=== PATIENT | male | born 1965 | race Caucasian/White ===

== ENCOUNTER 2021-04-14 14:39 | Emergency (ER) | payer OTHER, SELFPAY ==
--- NOTE | ~2021-04-14 | CT_ITS ---
EXAMINATION: CT ABDOMEN AND PELVIS WITHOUT CONTRAST CLINICAL INFORMATION: Left flank pain with history of stones COMPARISON: Ultrasound 02/05/2019 TECHNIQUE: Multidetector volumetric imaging was performed from the superior aspect of the liver through the pubic symphysis. Sagittal and coronal reformatted images were obtained on the technologist's workstation. This CT examination was performed using dose optimization techniques as appropriate, variously including the following: *Automated exposure control *Adjustment of mA and/or kV according to patient size (this includes techniques or standardized protocols for targeted exams where dose is matched to indication/reason for exam; i.e. extremities or head) *Use of iterative reconstruction technique DLP: 938 mGy-cm FINDINGS: LUNG BASES: The visualized lung bases are unremarkable. LIVER, GALLBLADDER, AND BILIARY TREE: The liver is normal in size, shape, and attenuation. No focal hepatic lesion or biliary ductal dilatation is present. The gallbladder is unremarkable with no evidence of radiopaque gallstones, gallbladder wall thickening, or obvious pericholecystic inflammatory changes. PANCREAS: Unremarkable. SPLEEN: Unremarkable. ADRENAL GLANDS: Unremarkable. KIDNEYS AND URETERS: Right lower pole 4 mm nonobstructing calculus. There is an 8 mm left lower pole calculus with an adjacent 3 mm calculus. No hydronephrosis or hydroureter bilaterally. BLADDER: Unremarkable. GASTROINTESTINAL TRACT: The small and large bowel are unremarkable. The appendix is unremarkable. ABDOMINAL WALL: Small fat-containing umbilical hernia. LYMPH NODES: Normal. VASCULAR: Unremarkable. PELVIC VISCERA: The prostate and seminal vesicles are unremarkable. OSSEOUS STRUCTURES: Multilevel degenerative changes. There is severe degenerative disc disease with endplate sclerosis, osteophytosis, and vacuum disc phenomenon at L3-L4 through L5-S1. CT/CT abdomen pelvis wo con IMPRESSION: Nonobstructing bilateral renal calculi, 4 mm in the right lower pole and 8mm and 3 mm in the left lower pole. No hydronephrosis or hydroureter.
[2021-04-14 15:21] VITALS: BP 186/90; PULSE 87; RESP 18; TEMP 37; O2SAT 98; BMI 41.3
[2021-04-14 15:53] LABS: Glucose Urine UA NEG (NEG); Leukocyte Esterase Urine NEG (NEG); Nitrite Urine NEG (NEG); PH 5.5 (5.0-8.0); Urine Blood NEG (NEG); Urine Ketones 40 MG/DL (NEG); Urine Protein NEG (NEG-TRACE)
[2021-04-14 15:55] LABS: Appearance Urine CLEAR; Color Urine YELLOW
[2021-04-14 17:55] LABS: MANUAL DIFF FLAG NO
[2021-04-14 17:56] LABS: Basophils Absolute Auto 0.1 X10*3/uL (0.0-0.2); Basophils Percent Auto 0.4 % (0-2); Eosinophils Absolute Auto 0.1 X10*3/uL (0.0-0.4); Eosinophils Percent Auto 0.4 % (0-4); Hematocrit 50.7 % (42-52); Hemoglobin 16.9 g/dl (14.0-18.0); Imm Gran Abs Auto 0.05 X10*3/uL (0.00-0.03); Imm Gran Pct Auto 0.4 % (0.0-0.4); Lymphocytes Absolute Auto 2.9 X10*3/uL (1.2-4.9); Lymphocytes Percent Auto 23.3 % (20-40); Mean Corpuscular HGB Conc 33.3 g/dl (31.0-36.0); Mean Corpuscular Hemoglobin 30.8 pg (27.0-33.0); Mean Corpuscular Volume 92.5 fL (80-98); Mean Platelet Volume 10.2 fL (9.4-12.4); Monocytes Absolute Auto 1.1 X10*3/uL (0.1-1.2); Monocytes Percent Auto 8.9 % (2-11); Neutrophils Absolute Auto 8.3 X10*3/uL (2.0-8.3); Neutrophils Percent Auto 66.6 % (45-73); Platelet Count 197 X10*3/uL (160-400); Red Blood Count 5.48 X10*6/uL (4.60-5.80); Red Cell Distribution Width 13.2 % (11.0-16.0); White Blood Count 12.5 X10*3/uL (4.8-10.8)
[2021-04-14 18:22] LABS: Alanine Aminotransferase 43 U/L (0-40); Albumin Level 4.8 g/dL (3.5-5.0); Alkaline Phosphatase 74 U/L (39-117); Anion Gap 17 (12-20); Aspartate Amino Transferase 25 U/L (5-37); Bilirubin Direct 0.3 mg/dL (0.0-0.5); Bilirubin Total 0.7 mg/dL (0.0-1.0); Blood Urea Nitrogen 12 mg/dL (9-16); Calcium 10.6 mg/dL (8.4-10.2); Carbon Dioxide 25 mmol/L (22-29); Chloride 108 mmol/L (96-108); Creatinine Clr Calc Pharmacy 127.9; Estimated Glomerular Filt Rate > 60; Glucose Random 98 mg/dL (60-115); Lipase 20 U/L (8-78); Potassium 4.8 mmol/L (3.3-5.1); Sodium 145 mmol/L (135-145); Total Protein 7.5 g/dL (6.5-8.0)
--- NOTE | 2021-04-14 20:13 | ED.ABDPAIN ---
HPI - Abdominal Pain General Chief Complaint: Abdominal Pain Stated Complaint: Kidney stone non urine Time Seen by Provider: 04/14/21 20:13 Source: patient Mode of arrival: ambulatory Limitations: no limitations History of Present Illness HPI narrative: Patient history of kidney stone complaining of pain in the left flank left lower abdomen area for last month or so patient on ketogenic diet drinking enough fluids c/o of pain while urinating also no nausea no vomiting no hematuria No fever or chills normal appetite eating drinking fine Related Data Allergies Allergy/AdvReac Type Severity Reaction Status Date / Time No Known Allergies Allergy Unverified 07/17/20 15:08 [No Known Allergies*] Review of Systems Review of Systems Constitutional : No Weight loss, No Fever, No Chills ENT/Mouth : No sore throat, No Rhinorrhea Eyes: No Eye Pain, No Swelling Cardiovascular : No Chest Pain, no palpitations Respiratory : No Cough, No Sputum, no shortness of breath Gastrointestinal : no Nausea, No Vomiting, No Diarrhea, No abdominal Pain, no black stools Genitourinary : No Dysuria, No Urinary Frequency Musculoskeletal : No joint pain, No Myalgias, No Joint Swelling Skin : No Skin Lesions, No rash Neuro : No Weakness, No Numbness, No Dizziness, No Headache Psych : No Anxiety/Panic, No Depression Heme/Lymph: No Bruising, No Lymphadenopathy Endocrine : No Polyuria, No Polydipsia All other systems reviewed and are negative Physical Exam Vital Signs: Vital Signs: Last Vital Signs Temp 98.6 F 04/14/21 15:21 Pulse 88 04/14/21 22:14 Resp 17 04/14/21 22:14 BP 160/101 H 04/14/21 22:14 Pulse Ox 95 04/14/21 22:14 Body Mass Index 41.3 Appearance: Alert. Oriented X3. No acute distress. Eyes: PERRLA, No Nystagmus ENT: Pharynx normal. Oral Mucosa moist Neck: Normal inspection. Neck supple. CVS: Normal heart rate and rhythm. Pulses normal. Respiratory: No respiratory distress. Equal air entry bilateral, no wheezing/rales/rhonchi Abdomen: Soft and nontender. Bowel sounds are present, no mass palpable, left flank tenderness mild Skin: Skin warm and dry. Normal skin color. Normal skin turgor. Extremities: No lower extremity edema. No calf tenderness Neuro: Oriented X 3. No motor deficit. No sensory deficit.No cerebellar signs , cranial nerves II-XII intact MDM - Abdominal Pain MDM Narrative Medical decision making narrative: Patient with left flank pain for a while ketones in the urine , patient on ketogenic diet CT scan showed nonobstructive left renal stone. Patient advised to follow with primary care doctor and neurologist. Patient's blood pressure was on the elevated side on arrival patient's blood pressure was 186/90 at time of discharge was 160/101 patient was on metoprolol and will be seeing his PCP tomorrow advised to talk to about the additional medication for hypertension Lab Data Attestation: I reviewed the patient's lab results. Result diagrams: 04/14/21 17:36 04/14/21 17:36 Labs: Lab Results 04/14/21 04/14/21 04/14/21 Range/Units 15:43 17:36 17:36 WBC 12.5 H (4.8-10.8) X10*3/uL RBC 5.48 (4.60-5.80) X10*6/uL Hgb 16.9 (14.0-18.0) g/dl Hct 50.7 (42-52) % MCV 92.5 (80-98) fL MCH 30.8 (27.0-33.0) pg MCHC 33.3 (31.0-36.0) g/dl RDW 13.2 (11.0-16.0) % Plt Count 197 (160-400) X10*3/uL MPV 10.2 (9.4-12.4) fL Immature Gran % (Auto) 0.4 (0.0-0.4) % Neut % (Auto) 66.6 (45-73) % Lymph % (Auto) 23.3 (20-40) % [place] % (Auto) 8.9 (2-11) % Eos % (Auto) 0.4 (0-4) % Baso % (Auto) 0.4 (0-2) % Lymph # (Auto) 2.9 (1.2-4.9) X10*3/uL [place] # (Auto) 1.1 (0.1-1.2) X10*3/uL Eos # (Auto) 0.1 (0.0-0.4) X10*3/uL Baso # (Auto) 0.1 (0.0-0.2) X10*3/uL Abs Immat Gran (auto) 0.05 H (0.00-0.03) X10*3/uL Absolute Neuts (auto) 8.3 (2.0-8.3) X10*3/uL Absolute Nucleated RBC 0.000 (0.0-0.012) X10*3/uL Nucleated RBC % (auto) 0.0 (0.0-0.2) /100WBC Sodium 145 (135-145) mmol/L Potassium 4.8 (3.3-5.1) mmol/L Chloride 108 (96-108) mmol/L Carbon Dioxide 25 (22-29) mmol/L Anion Gap 17 (12-20) BUN 12 (9-16) mg/dL Creatinine 0.87 (0.5-1.4) mg/dL Estim Creat Clear Calc 127.9 Estimated GFR > 60 Random Glucose 98 (60-115) mg/dL Calcium 10.6 H (8.4-10.2) mg/dL Total Bilirubin 0.7 (0.0-1.0) mg/dL Direct Bilirubin 0.3 (0.0-0.5) mg/dL AST 25 (5-37) U/L ALT 43 H (0-40) U/L Alkaline Phosphatase 74 (39-117) U/L Total Protein 7.5 (6.5-8.0) g/dL Albumin 4.8 (3.5-5.0) g/dL Lipase 20 (8-78) U/L Urine Color YELLOW Urine Appearance CLEAR Urine pH 5.5 (5.0-8.0) Ur Specific [place] 1.020 (1.005-1.025) Urine Protein NEG (NEG-TRACE) MG/DL Urine Glucose (UA) NEG (NEG) MG/DL Urine Ketones 40 (NEG) MG/DL Urine Blood NEG (NEG) Urine Nitrite NEG (NEG) Ur Leukocyte Esterase NEG (NEG) Discharge Plan Discharge Clinical Impression: Kidney stones Patient Disposition: Home, Self-Care Instructions: Kidney Stones (ED), Hypertension (ED) Additional Instructions: Drink plenty of fluids Take blood pressure medicine as prescribed Follow with PCP if not better See your MD tomorrow regarding blood pressure control Interventions: ED Discharge Assessment Last Done: 04/14/21 22:29 Discharge Date/Time: 04/14/21 22:30 PMFSH Past Medical History Medical History Hypertension Social History Social History Advance Directives: No Advance Directives Information Provided: No
[2021-04-14 22:14] VITALS: BP 160/101; PULSE 88; RESP 17; O2SAT 95
== END 2021-04-14 22:30 | disposition home or self-care (01) ==
PROVIDERS: Emergency Medicine; Emergency Provider Internal Medicine; PCP Internal Medicine
DX: N20.0 Calculus of kidney (principal); I10 Essential (primary) hypertension; Z87.442 Personal history of urinary calculi
CPT/HCPCS: 36415; 74176; 80048; 80076; 81003; 83690; 85025; 99284

== ENCOUNTER → 2021-06-04 13:01 | Outpatient (BNVA) | payer OTHER, SELFPAY | PROVIDERS: PCP Internal Medicine; Visit Provider Urology ==

== ENCOUNTER 2021-08-19 06:05 | Day surgery (SDC) | payer OTHER, SELFPAY ==
[2021-08-14 15:00] VITALS: BMI 38.4
--- NOTE | 2021-08-18 09:55 | P.CONAN_ITS ---
Documented by User: Chiara Bird NP 08/18/21 09:57 HPI - Anesthesia Eval Consult details Narrative: 55yo M for Left ESWL Last ESWL 2017 with MAC [facility] Active Problems Active Problems: All Active Problems (Updated 06/04/21 @ 13:43 by Reed Rossi MD) BPH w urinary obs/LUTS (Acute) Nephrolithiasis (Acute) Past Medical History Medical History Hypertension Post-tonsillectomy hemorrhage Surgical History Surgical History History of lithotripsy History of tonsillectomy Social History Social History Patient Tobacco Use Status: Never used Tobacco Use of substances other than those prescribed or required for medical reasons: No Are you DNR?: No Advance Directives: No Advance Directives Information Provided: Yes Recently lost weight without trying: No Nutrition Risks: No Nutritional Risk Meds Allergies Allergy/AdvReac Type Severity Reaction Status Date / Time No Known Allergies Allergy Verified 06/04/21 13:15 [No Known Allergies*] Home Medications Medication Instructions Recorded Confirmed Last Taken Type atorvastatin 10 mg tablet 10 mg PO DAILY 06/04/21 08/19/21 History 0500 cephalexin 500 mg capsule 0 mg PO 06/04/21 Unknown History metoprolol tartrate 50 mg tablet 50 mg PO BID 06/04/21 Unknown History tamsulosin 0.4 mg capsule 0.4 mg PO DAILY 06/04/21 Unknown History Exam Exam Date and Time: August 18, 2021 0955 Height,Weight and Vital Signs: Height 5 ft 9 in Weight 117.934 kg Pertinent Lab Results Pertinent Lab Results: Laboratory Tests 04/14/21 04/14/21 17:36 17:36 WBC 12.5 H Hgb 16.9 Hct 50.7 Plt Count 197 Sodium 145 Potassium 4.8 Chloride 108 Carbon Dioxide 25 BUN 12 Creatinine 0.87 Assessment and Plan Assessment Anesthesia Assessment: Chart Reviewed Documented by User: Kelsey Nguyen MD 08/19/21 07:44 PMFSH Past Medical History Medical History Hypertension Post-tonsillectomy hemorrhage Surgical History Surgical History History of lithotripsy History of tonsillectomy History of Problems with Anesthesia: No Social History Social History Patient Tobacco Use Status: Never used Tobacco Use of substances other than those prescribed or required for medical reasons: No Are you DNR?: No Advance Directives: No Advance Directives Information Provided: Yes Recently lost weight without trying: No Nutrition Risks: No Nutritional Risk Meds Allergies Allergy/AdvReac Type Severity Reaction Status Date / Time No Known Allergies Allergy Verified 06/04/21 13:15 [No Known Allergies*] Home Medications Medication Instructions Recorded Confirmed Last Taken Type atorvastatin 10 mg tablet 10 mg PO DAILY 06/04/21 08/19/21 History 0500 cephalexin 500 mg capsule 0 mg PO 06/04/21 Unknown History metoprolol tartrate 50 mg tablet 50 mg PO BID 06/04/21 Unknown History tamsulosin 0.4 mg capsule 0.4 mg PO DAILY 06/04/21 Unknown History Exam Airway Mallampati Class: II TM Dist: >3cm Neck ROM: Full Loose/Missing/Broken Teeth: No Heart: RRR Lungs: CTA Assessment and Plan Assessment Anesthesia Assessment: Anesthesia Plan Discussed Final Anesthetic Review History of Problems with Anesthesia: No NPO: Yes ASA Class: II Final Preanesthetic Review: Meds/Allgs Chart Reviewed, Consent Obtained/Reviewed and Anes Risks/Benef Reviewed Patient Risk: Low Procedure Risk: Low Anesthetic Plan Anesthetic Plan: MAC: Disposition: Standard PACU
--- NOTE | ~2021-08-19 | XR_ITS ---
EXAMINATION: XR ABDOMEN KUB CLINICAL INDICATION: Nephrolithiasis COMPARISON: Previous KUB January [address] of the abdomen and pelvis March 2021 TECHNIQUE: AP view of the abdomen. FINDINGS: There is a cluster of stones projecting over the lower pole of the left kidney. The largest measures 1 cm. No right renal stone is seen. Bowel gas pattern is normal. Bony structures are normal. XR/XR KUB IMPRESSION: Left lower pole renal stones.
[2021-08-19 06:39] VITALS: BP 161/95; PULSE 66; RESP 18; TEMP 36.9; O2SAT 96; BMI 37.0
[2021-08-19] MEDS: Acetaminophen 325 MG TABLET 650 MG PO (06:57)
[2021-08-19] MEDS: Lactated Ringers 1,000 ML 100 ML IVCONT (07:35)
--- NOTE | 2021-08-19 07:39 | MHC.SHP ---
Pre-Procedural Eval Section A Date of Service: 08/19/21 Section B Chief Complaint: calculus of kidney Details of Present Illness: left renal calculus Present Medications: see Short Stay Collaborative assessment Medical History: No relevant PMH History of Previous Operations: No relevant previous surgery Allergies: Allergies Allergy/AdvReac Type Severity Reaction Status Date / Time No Known Allergies Allergy Verified 06/04/21 13:15 [No Known Allergies*] Review of Systems Sugical H&P ROS: Negative: Constitution, Cardiovascular, Respiratory, Neurological, Psychiatric, Hem-Onc, Allergic/Immunologic, Gastrointestinal, Genitourinary, Musculoskeletal, Integumentary, Endocrine and Eyes/Ears/Nose/Throat Exam Surgical H&P Exam: Normal: HEENT, Normal: Heart, Normal: Lungs, Normal: Extremities, Normal: Abdomen, Normal: Skin and Normal: Neurological Plan Diagnosis/Plan: Unchanged (left eswl) I have reviewed the history and physical and performed a pertinent physical examination on my patient. No changes have occurred unless specified.
--- NOTE | 2021-08-19 08:08 | P.OP_ITS ---
Operative Note Operative Note Date of Service: 08/19/21 Narrative: PreOperative Diagnosis: Left Renal stones Post Operative Diagnosis: Left Renal stones Procedure: Left ESWL - 1 cm stone Surgeon: Dr Reed Rossi Anesthesia: mac/sedation Indications for procedure: The patient understands ESWL may be a staged procedure and subsequent inter vention may be required based on imaging after ESWL. They also understand there is a risk of bleeding to the kidney, infection, damage to adjacent organs, and stone migration following the procedure. Procedure: After informed consent was verified the patient was brought to the operating room and placed in a supine position. Anesthesia was performed per protocol. Safety pause time-out was performed. Imaging was displayed in the room and laterality confirmed. - 1 cm stone left lower pole ESWL was performed. The 1st 500 shocks were performed at 60 hertz. These were performed with increasing power. Once maximum power was reached the rate was increased to 180 hertz. A total of 2500 shocks were given. Targetted imaging with ultrasound/fluoroscopy showed stone smudging suggestive of disintegration. The patient tolerated the procedure well and was transferred to the recovery area upon completion. Post procedure imaging will be organized. There was no rashaun dence for flank discoloration.
[2021-08-19 08:20] VITALS: BP 104/66; PULSE 70; RESP 12; TEMP 36.7; O2SAT 93
[2021-08-19 08:35] VITALS: BP 112/61; PULSE 62; RESP 14; O2SAT 96
[2021-08-19 08:50] VITALS: BP 116/65; PULSE 63; RESP 16; O2SAT 94
[2021-08-19] MEDS: Phenazopyridine HCL 100 MG TABLET PO (09:18)
== END 2021-08-19 09:32 | disposition home or self-care (01) ==
PROVIDERS: PCP Internal Medicine; Visit Provider Urology
PROC: (CPT 50590; principal; 2021-08-19 07:30)
DX: N20.0 Calculus of kidney (principal); Z87.442 Personal history of urinary calculi; I10 Essential (primary) hypertension; N40.1 Benign prostatic hyperplasia with lower urinary tract symptoms; N13.8 Other obstructive and reflux uropathy
CPT/HCPCS: 50590; 74018; J1100; J1885; J2250; J2405

== ENCOUNTER 2021-09-07 08:20 | Outpatient (REF) | payer OTHER, SELFPAY ==
--- NOTE | ~2021-09-07 | US_ITS ---
EXAMINATION: US RETROPERITONEAL LIMITED (RENAL ONLY) CLINICAL INFORMATION: Calculus of kidney. COMPARISON: KUB 08/19/2021. CT abdomen and pelvis 04/14/2021. Renal ultrasound 02/05/2019. TECHNIQUE: Real-time imaging of the kidneys. FINDINGS: RIGHT KIDNEY: 12.6 x 5.6 x 6.4 cm (SAG x AP x TRV). The kidney is normal in size, contour, and echogenicity. Renal cortical thickness is normal. There are 3 stones in the mid and lower pole, largest measuring 4 x 4 by 6 mm. No focal parenchymal lesions or hydronephrosis. LEFT KIDNEY: 13.2 x 6.1 x 6.5 cm (SAG x AP x TRV). The kidney is normal in size, contour, and echogenicity. Renal cortical thickness is normal. There are multiple left renal stones. Largest stone or cluster of stones measure 1.8 x 0.7 x 1.4 cm in the lower pole. There is a small 8 mm cyst exophytic to the upper pole. There is mild caliectasis. No pelvic dilatation is seen. US/US renal BI IMPRESSION: Bilateral renal stones, left greater than right. Mild left caliectasis. Small left renal cyst.
== END 2021-09-07 08:21 | disposition home or self-care (01) ==
LOC: HO.HMGCX 08:20
PROVIDERS: PCP Internal Medicine; Visit Provider Urology
DX: N20.0 Calculus of kidney (principal)
CPT/HCPCS: 76775

== ENCOUNTER → 2021-09-16 15:48 | Outpatient (BNVA) | payer OTHER, SELFPAY | PROVIDERS: PCP Internal Medicine; Visit Provider Urology ==

== ENCOUNTER 2022-04-06 12:53 | Outpatient (REF) | payer OTHER, SELFPAY ==
--- NOTE | ~2022-04-06 | US_ITS ---
EXAMINATION: US RETROPERITONEAL LIMITED (RENAL ONLY) CLINICAL INFORMATION: Calculus of kidney. COMPARISON: Renal ultrasound 09/07/2021 and 02/05/2019. X-ray abdomen KUB 08/19/2021 and 02/05/2019. CT abdomen and pelvis 04/14/2021. TECHNIQUE: Real-time imaging of the kidneys. FINDINGS: RIGHT KIDNEY: 11.5 x 6.3 x 6.7 cm (SAG x AP x TRV). The kidney is normal in size, contour, and echogenicity. Renal cortical thickness is normal. No focal parenchymal lesions or hydronephrosis. There are a few echogenic stones. 1. Midpole echogenic stones measure 0.25 x 0.24 x 0.42 cm and 0.33 x 0.27 x 0.30 cm. 2. Upper pole echogenic stone measures 0.33 x 0.24 x 0.27 cm. 3. Lower pole echogenic stone measures 0.24 x 0.34 x 0.38 cm. LEFT KIDNEY: 12.6 x 5.8 x 6.2 cm (SAG x AP x TRV). The kidney is normal in size, contour, and echogenicity. Renal cortical thickness is normal. No hydronephrosis. There is an anechoic cyst. 1. Upper pole stones measure 0.30 x 0.24 x 0.24 cm and 0.34 x 0.21 x 0.28 cm. 2. Lower pole stones measure 0.60 x 0.40 x 0.50 and 0.34 x 0.34 x 0.39 cm. 3. Midpole stone measures 0.32 x 0.25 x 0.33 cm. There is an anechoic cyst in the upper pole measuring 0.88 x 0.62 x 0.8 cm. US/US renal BI IMPRESSION: Bilateral echogenic stones without caliectasis or hydronephrosis. Anechoic cyst upper pole measures 0.9 cm.
== END 2022-04-06 12:54 | disposition home or self-care (01) ==
LOC: HO.HMGCX 12:53
PROVIDERS: PCP Internal Medicine; Visit Provider Urology
DX: N20.0 Calculus of kidney (principal)
CPT/HCPCS: 76775

== ENCOUNTER 2022-10-04 08:31 | Outpatient (REF) | payer OTHER, SELFPAY ==
--- NOTE | ~2022-10-04 | US_ITS ---
EXAMINATION: US RETROPERITONEAL LIMITED (RENAL ONLY) CLINICAL INFORMATION: Calculus of kidney. COMPARISON: Ultrasound retroperitoneal limited (renal only) 04/06/2022 and 09/07/2021. X-ray abdomen KUB 08/19/2021. CT abdomen and pelvis without contrast 04/14/2021. X-ray abdomen KUB 02/05/2019. TECHNIQUE: Real-time imaging of the kidneys. FINDINGS: RIGHT KIDNEY: 12.8 x 6.4 x 6.6 cm (SAG x AP x TRV). The kidney is normal in size, contour, and echogenicity. Renal cortical thickness is normal. No hydronephrosis. There are multiple echogenic stones without caliectasis They measure as follows: 1. Lower pole cyst measures 0.76 x 0.46 x 0.70 cm. 2. Midpole cyst measures 0.30 0.28 x 0.33 cm. 3. Upper pole cyst measures 0.34 x 0.31 x 0.26 cm. 4. There is a solitary anechoic cyst in midpole measuring 0.80, 0.70 0.74 cm. LEFT KIDNEY: 13.4 x 6.0 x 6.5 cm (SAG x AP x TRV). The kidney is normal in size, contour, and echogenicity. Renal cortical thickness is normal. No hydronephrosis. There is an anechoic cyst cyst in the upper pole measuring 0.01096 x 0.3 cm. There are several echogenic stones with the largest stones measurin. Midpole stone measures 0.37, 0.26 0.34 cm. 2. [place] stone measures 0.2 x 0.2 x 0.21 cm. 3. Midpole stone measures 0.22 x 0 0.25 to 0.23 cm. 4. Lower pole stone measures 0.50 x 0.26 x 0.42 cm. 5. Lower pole stone measures 0.34 x 0.30 x 0.30 cm. US/US renal BI IMPRESSION: Bilateral echogenic renal calculi without caliectasis or hydronephrosis. Bilateral simple renal cysts.
== END 2022-10-04 08:32 | disposition home or self-care (01) ==
LOC: HO.HMGCX 08:31
PROVIDERS: PCP Internal Medicine; Visit Provider Urology
DX: N20.0 Calculus of kidney (principal)
CPT/HCPCS: 76775

== ENCOUNTER → 2022-10-19 15:42 | Outpatient (BNVA) | payer OTHER, SELFPAY | PROVIDERS: PCP Internal Medicine; Visit Provider Urology | DX: R82.994 Hypercalciuria (principal) ==

== ENCOUNTER → 2023-01-18 11:45 | Outpatient (BNVA) | payer OTHER, SELFPAY | PROVIDERS: PCP Internal Medicine; Visit Provider Urology | DX: Z13.89 Encounter for screening for other disorder (principal) ==

== ENCOUNTER 2023-07-15 15:08 | Outpatient (REF) | payer OTHER, SELFPAY ==
--- NOTE | ~2023-07-15 | XR_ITS ---
EXAMINATION: XR ABDOMEN KUB CLINICAL INDICATION: Calculus of kidney COMPARISON: Renal ultrasound 10/05/2022, KUB 08/19/2021, CT scan 04/14/2021 TECHNIQUE: 3 AP views of the abdomen. FINDINGS: Nonobstructive bowel gas pattern. Moderate amount of stool in the colon. Visualization of the bilateral kidneys is limited due to overlying bowel. Degenerative changes in the lumbar spine. Cluster of calculi project over the lower pole of the left kidney, largest 5 mm. Additional calculi projecting over the midpole of the left kidney, largest 5 mm. Tiny calculi project over the mid to lower pole of right kidney. XR/XR KUB IMPRESSION: Bilateral renal calculi, left greater than right..
== END 2023-07-15 15:09 | disposition home or self-care (01) ==
LOC: HO.XRAY 15:08
PROVIDERS: Visit Provider Urology
DX: N20.0 Calculus of kidney (principal)
CPT/HCPCS: 74018

== ENCOUNTER 2023-07-28 09:35 | Outpatient (AMB) | payer OTHER, SELFPAY ==
--- NOTE | 2023-07-28 09:35 | MHC.OFFVIS ---
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 He is a patient of Dr Malik. He is seen for the following urologic conditions. - nephrolithiasis - lower urinary tract symptoms - erectile dysfunction Telemedicine Evaluation 15 min Consultation [employer] S[facility]hu Video Continue indapamide Discussed imaging findings Other issues erectile dysfunction Slowly progressive Trial daily Cialis Nephrolithiasis/Urolithiasis:? Urolithiasis was diagnosed?long standing.? The patient previously had kidney stones whose composition w?07/18 , calcium oxalate - monohydrate 80%.? Laboratory investigations include?Base line serum evaluation, borderline calcium, borderline PTH, , Normal uric acid - will repeat in future.? 24 Hour urine evaluation?07/18 , Good Volume > 2.00 L, Low calcium <200, High Citrate, High oxalate > 30mg - 58 - 12/22 good volume, high calcium 350, high citrate, oxalate 20 - pH 5.5 - 10/21 high calcium, high citrate, low pH - 01/20 high calcium, low pH, high uric acid ? Prior treatment(s) include?07/18 left ESWL - 08/20 left ESWL ? Prior imaging includes?05/17 , a renal ultrasound, showing radiodense stone(s), bilaterally, L eft 8mm and 5mm, Right 3mm, hydronephrosis mild in severity - 08/17 , a renal ultrasound, showing radiodense stone(s), left 5mm, Right 4mm - 02/16 , a KUB x-ray normal, , a renal ultrasound left stones 5mm x 3 - 7/21 CT scan right 4 mm stone, left 8 mm stone - 08/20 OBI with stone fragments - 04/21 OBI bilateral small stones - 10/21 renal ultrasound with multiple bilateral small stones none more than 4 mm - 06/22 KUB cluster 5 mm stones left side, small stones right ? Current therapeutic plan will be - continue indapamide PFSH Medical History Post-tonsillectomy hemorrhage Hypertension Surgical History History of lithotripsy History of tonsillectomy Social History Patient Tobacco Use Status: Never used Tobacco Review of Systems Const All systems reviewed & are unremarkable except as noted in HPI and below Reports no additional complaints Resp Reports no additional complaints GI Reports no additional complaints Reports as per HPI Musc Reports no additional complaints Physical Exam Telemedicine evaluation Appropriate responses Regular breathing rate and rhythm HEENT Head: Yes normal to inspection Ears: hearing grossly normal bilaterally Eyes General: appearance normal, both eyes and all related structures Neck Neck: Yes normal visual inspection Chest Chest palpation & inspection: normal inspection of the chest Resp Effort & Inspection: normal respiratory effort and able to speak in complete sentences Assessment & Plan Assessment & Plan (1) Erectile dysfunction: Code(s): N52.9 - Male erectile dysfunction, unspecified Qualifiers: Erectile dysfunction type: vasculogenic Vasculogenic erectile dysfunction type: due to arterial insufficiency Qualified Code(s): N52.01 - Erectile dysfunction due to arterial insufficiency Plan Three month follow-up Orders: Orders US renal BI 6 Months N20.0 - Calculus of kidney Medications: New tadalafil BIN [id number] [facility] DR33 5 mg PO DAILY 90 days 90 tabs 0RF sexual activity E11.69 - Type 2 diabetes mellitus with other specified complication, N52.1 - Erectile dysfunction due to diseases classified elsewhere tadalafil BIN [id number] [facility] DR33 5 mg PO DAILY 90 days 90 tabs 0RF sexual activity E11.69 - Type 2 diabetes mellitus with other specified complication, N52.1 - Erectile dysfunction due to diseases classified elsewhere Changed From pyridoxine (vitamin B6) 100 mg PO DAILY 90 days 90 tabs 1RF N20.0 - Calculus of kidney To pyridoxine (vitamin B6) 50 mg PO DAILY 90 days 90 tabs 1RF N20.0 - Calculus of kidney Refilled indapamide 2.5 mg PO DAILY 90 days 90 tabs 1RF N20.0 - Calculus of kidney Patient Instructions: Imaging studies, laboratory and physical exam results were discussed and reviewed in detail. No major barriers to patient understanding were identified. An opportunity to ask questions regarding the treatment plan was provided. All questions were answered. The patient expressed understanding and agreement with the above treatment plan. The patient is aware they should contact our office by phone for worsening of their current condition or the appearance of new urologic symptoms. Compliance is encouraged with any medications and followup testing that is ordered. It is a privilege to participate in the urologic care of your patient. If you have any questions or concerns regarding treatment for the above conditions, or other urologic issues, please do not hesitate to contact me. The office telephone contact is [phone]. This note is constructed using voice recognition software. While every effort has been made to ensure accuracy blacksmith helper errors may have been included. Yours sincerely, Dr Reed Rossi MD, RICHARD [facility] - Urology Providers of Expert, Compassionate Care for the Genitourinary System Telehealth Telehealth Location of provider rendering services: practice address Location of patient: address on file Patient Identification confirmed using: Name, : Yes Telehealth method: video Patient verbally consented to treatment: Yes Patient verbally consented to billing insurance company: Yes Patient informed of any privacy concerns related to visit: Yes Coding Level of Care Code Tele Est Pt Level 4 (04893) Diagnoses Erectile dysfunction due to arterial insufficiency N52.01 Erectile dysfunction type: vasculogenic Vasculogenic erectile dysfunction type: due to arterial insufficiency
== END 2023-07-28 11:59 | disposition home or self-care (01) ==
LOC: HO.HUSH 09:35
PROVIDERS: PCP Internal Medicine; Visit Provider Urology
DX: N52.01 Erectile dysfunction due to arterial insufficiency (principal)
CPT/HCPCS: 99214

== ENCOUNTER → 2023-07-28 09:35 | Outpatient (BNVA) | payer OTHER, SELFPAY | PROVIDERS: PCP Internal Medicine; Visit Provider Urology ==

== ENCOUNTER 2023-11-03 11:21 | Outpatient (AMB) | payer OTHER, SELFPAY ==
--- NOTE | 2023-11-03 11:23 | MHC.OFFVIS ---
Intake Intake Visit Reasons: 3m follow up Intake Note: Patient is Present for Telephone Follow Up For Urology Med: Tadalafil , Vitamin B6 Antibiotic Allergy: None Blood Thinner: None Allergies No Known Allergies [No Known Allergies*] Allergy (Verified 07/28/23 09:39) Medication List - Last Reconciled 11/03/23 by Reed Rossi MD atorvastatin 10 mg PO DAILY cephalexin 500 mg PO DAILY indapamide 2.5 mg PO DAILY 90 days metoprolol tartrate 50 mg PO BID pyridoxine (vitamin B6) 50 mg PO DAILY 90 days tadalafil 5 mg PO DAILY 90 days HPI HPI Comments History of Present Illness Details ?Lewis AQUINO is a very pleasant male. He is a patient of Dr Malik. He is seen for the following urologic conditions. - nephrolithiasis - lower urinary tract symptoms - erectile dysfunction Telemedicine Evaluation 15 min Consultation [employer] Sindhu Video Daily Cialis follow-up Effective Taking every other day with effect Follow-up 3 months for kidney stone Erectile dysfunction Metabolic factors include dyslipidemia and hypertension Good response to daily low-dose Cialis Nephrolithiasis/Urolithiasis:? Urolithiasis was diagnosed?long standing.? The patient previously had kidney stones whose composition w?07/18 , calcium oxalate - monohydrate 80%.? Laboratory investigations include?Base line serum evaluation, borderline calcium, borderline PTH, , Normal uric acid - will repeat in future.? 24 Hour urine evaluation?07/18 , Good Volume > 2.00 L, Low calcium <200, High Citrate, High oxalate > 30mg - - 12/22 good volume, high calcium 350, high citrate, oxalate 20 - pH 5.5 - 10/21 high calcium, high citrate, low pH - 01/20 high calcium, low pH, high uric acid ? Prior treatment(s) include?07/18 left ESWL - 08/20 left ESWL ? Prior imaging includes?05/17 , a renal ultrasound, showing radiodense stone(s), bilaterally, L eft 8mm and 5mm, Right 3mm, hydronephrosis mild in severity - 08/17 , a renal ultrasound, showing radiodense stone(s), left 5mm, Right 4mm - 02/16 , a KUB x-ray normal, , a renal ultrasound left stones 5mm x 3 - 05/20 CT scan right 4 mm stone, left 8 mm stone - 08/20 OBI with stone fragments - 04/21 OBI bilateral small stones - 10/21 renal ultrasound with multiple bilateral small stones none more than 4 mm - 06/22 KUB cluster 5 mm stones left side, small stones right ? Current therapeutic plan will be - continue indapamide 2.5mg PFSH Medical History Post-tonsillectomy hemorrhage Hypertension Surgical History History of lithotripsy History of tonsillectomy Social History Patient Tobacco Use Status: Never used Tobacco Review of Systems Const All systems reviewed & are unremarkable except as noted in HPI and below Reports no additional complaints Resp Reports no additional complaints GI Reports no additional complaints Reports as per HPI Musc Reports no additional complaints Physical Exam Telemedicine evaluation Appropriate responses Regular breathing rate and rhythm HEENT Head: Yes normal to inspection Ears: hearing grossly normal bilaterally Eyes General: appearance normal, both eyes and all related structures Neck Neck: Yes normal visual inspection Chest Chest palpation & inspection: normal inspection of the chest Resp Effort & Inspection: normal respiratory effort and able to speak in complete sentences Assessment & Plan Assessment & Plan (1) Nephrolithiasis: Comment: Calcium oxalate monohydrate Code(s): N20.0 - Calculus of kidney (2) Erectile dysfunction: Code(s): N52.9 - Male erectile dysfunction, unspecified Qualifiers: Erectile dysfunction type: vasculogenic Vasculogenic erectile dysfunction type: due to arterial insufficiency Qualified Code(s): N52.01 - Erectile dysfunction due to arterial insufficiency Plan Three month follow-up kidney imaging Medications: Changed From tadalafil BIN [id number] [facility] DR33 5 mg PO DAILY 90 days 90 tabs 0RF sexual activity E11.69 - Type 2 diabetes mellitus with other specified complication, N52.1 - Erectile dysfunction due to diseases classified elsewhere To tadalafil [id number] [facility] [id number] Member [id number] 5 mg PO DAILY 90 tabs 1RF sexual activity 90 days E11.69 - Type 2 diabetes mellitus with other specified complication, N52.1 - Erectile dysfunction due to diseases classified elsewhere Patient Instructions: Imaging studies, laboratory and physical exam results were discussed and reviewed in detail. No major barriers to patient understanding were identified. An opportunity to ask questions regarding the treatment plan was provided. All questions were answered. The patient expressed understanding and agreement with the above treatment plan. The patient is aware they should contact our office by phone for worsening of their current condition or the appearance of new urologic symptoms. Compliance is encouraged with any medications and followup testing that is ordered. It is a privilege to participate in the urologic care of your patient. If you have any questions or concerns regarding treatment for the above conditions, or other urologic issues, please do not hesitate to contact me. The office telephone contact is [phone]. This note is constructed using voice recognition software. While every effort has been made to ensure accuracy skiver box toe errors may have been included. Yours sincerely, Dr Reed Rossi MD, RICHARD [facility] - Urology Providers of Expert, Compassionate Care for the Genitourinary System Telehealth Telehealth Location of provider rendering services: practice address Location of patient: address on file Patient Identification confirmed using: Name, : Yes Telehealth method: video Patient verbally consented to treatment: Yes Patient verbally consented to billing insurance company: Yes Patient informed of any privacy concerns related to visit: Yes Coding Level of Care Code Tele Est Pt Level 3 (32927) Diagnoses Nephrolithiasis N20.0 Erectile dysfunction due to arterial insufficiency N52.01 Erectile dysfunction type: vasculogenic Vasculogenic erectile dysfunction type: due to arterial insufficiency
== END 2023-11-03 12:07 | disposition home or self-care (01) ==
LOC: HO.HUSH 11:21
PROVIDERS: PCP Internal Medicine; Visit Provider Urology
DX: N20.0 Calculus of kidney (principal); N52.01 Erectile dysfunction due to arterial insufficiency
CPT/HCPCS: 99213

== ENCOUNTER → 2023-11-03 11:21 | Outpatient (BNVA) | payer OTHER, SELFPAY | PROVIDERS: PCP Internal Medicine; Visit Provider Urology ==

== ENCOUNTER 2024-01-12 10:19 | Outpatient (REF) | payer OTHER, SELFPAY ==
--- NOTE | ~2024-01-12 | US_ITS ---
EXAMINATION: US RETROPERITONEAL LIMITED (RENAL ONLY) CLINICAL INFORMATION: Calculus of kidney. COMPARISON: X-ray abdomen KUB 07/15/2023. Renal ultrasound 10/04/2022 and 04/06/2022. CT abdomen and pelvis 04/14/2021. TECHNIQUE: Real-time imaging of the kidneys. FINDINGS: RIGHT KIDNEY: 13.0 x 6.3 x 6.8 cm (SAG x AP x TRV). The kidney is normal in size, contour, and echogenicity. Renal cortical thickness is normal. Several nonobstructing calculi are noted within the right kidney, largest measuring approximately 4 mm. There is no hydronephrosis. LEFT KIDNEY: 13.0 x 5.8 x 5.9 cm (SAG x AP x TRV). The kidney is normal in size, contour, and echogenicity. Renal cortical thickness is normal. There are several nonobstructing calculi noted within the left kidney, largest measuring approximately 9 mm. There is no hydronephrosis. Also noted is a 9 mm simple appearing upper pole cyst. US/US renal BI IMPRESSION: Bilateral nonobstructing renal calculi. No hydronephrosis of either kidney.
== END 2024-01-12 10:20 | disposition home or self-care (01) ==
LOC: HO.HMGCX 10:19
PROVIDERS: PCP Internal Medicine; Visit Provider Urology
DX: N20.0 Calculus of kidney (principal)
CPT/HCPCS: 76775

== ENCOUNTER 2025-06-04 10:00 | Outpatient (AMB) | payer OTHER, SELFPAY ==
--- NOTE | 2025-06-04 10:11 | A.OFFPC_ITS ---
Vital Signs 06/04/25 10:17 06/04/25 10:42 Height 5 ft 8.31 in Weight 287 lb BMI 43.2 BP 156/81 H 126/80 Blood Pressure Location Rt brachial Respiration 16 Pulse 72 Pulse Source Pulse Oximeter Temp 97.8 F Temp Source Temporal Artery Scan Pulse Oximetry (%) 96 Oxygen Delivery Method Room Air Intake Visit Reasons: physical Relationship Assoc Required: No Accompanied by: Self / Same As Patient Allergies No Known Allergies (No Known Allergies*) Allergy (Verified 06/04/25 10:42) Medication List - Last Reconciled 06/04/25 by Hiram Salas MD atorvastatin 10 mg PO DAILY cephalexin 500 mg PO DAILY metoprolol tartrate 50 mg PO BID pyridoxine (vitamin B6) 50 mg PO DAILY 90 days tadalafil 5 mg PO DAILY 90 days tamsulosin 0.4 mg PO DAILY Tobacco use date assessed: 06/04/25 Dental Screening Dental Screen Date: 06/04/25 Did you have a dental visit in the last 12 months?: Yes Did you have a dental problem in the last 6 months where you did not have access to dental care?: No Was dental information given to patient?: Patient has dentist [facility] Medical History (Updated 06/04/25 @ 10:41 by Hiram Salas MD) Post-tonsillectomy hemorrhage Hypertension Surgical History History of colonoscopy (~11/20/18) History of lithotripsy History of tonsillectomy Family History (Updated 06/04/25 @ 10:23 by ESTEPHANIA Schultz) Father Diabetes Heart problem Mother Multiple sclerosis Social History (Updated 06/04/25 @ 10:24 by ESTEPHANIA Schultz) Housing: House Alcohol intake: current Alcohol intake frequency: does not drink Patient Tobacco Use Status: Never used Tobacco service: No Current occupational status: employed Cognitive needs: No Hearing needs: No Vision needs: Yes (rx glasses) Questionnaire PHQ-9 Over the last 2 weeks, how often have you been bothered by any of the following problems? 1. Little interest or pleasure in doing things: not at all 2. Feeling down, depressed, or hopeless: not at all 3. Trouble falling or staying asleep, or sleeping too much: not at all 4. Feeling tired or having little energy: not at all 5. Poor appetite or overeating: not at all 6. Feeling bad about yourself - or that you are a failure or have let yourself or your family down: not at all 7. Trouble concentrating on things, such as reading the newspaper or watching television: not at all 8. Moving or speaking so slowly that other people could have noticed. Or the opposite - being so fidgety or restless that you have been moving around a lot more than usual: not at all 9. Thoughts that you would be better off or of hurting yourself in some way: not at all Total score: 0 Depression Screening Interpretation: Negative Depression Screening Done: Yes Source: Developed by Drs. Stewart Cabrera, Blanca Whalen, Joel Schmidt and colleagues, with an educational florecita from [employer]. Thrive Questionnaire Date Thrive assessed: 06/04/25 I am a: Patient What is your living situation today?: I have a steady place to live Within the past 12 months, did the food you bought not last and you didn't have the money to get more?: Never true Within the past 12 months, did you worry whether your food would run out before you got money to buy more?: Never true Do you have trouble paying for medicines?: No Do you have trouble getting transportation to medical appointments?: No Do you have trouble paying your heating and electricity bill?: No Do you have trouble taking care of your child, family member or friend?: No Do you have trouble with day-to-day activities such as bathing, preparing meals, shopping, managing finances, etc.?: No Are you currently unemployed and looking for a job?: No Are you interested in more education?: No Please select the resources that you would like help with: None THRIVE Score: 0 AUDIT C Alcohol Use Questionnaire (AUDIT-C) 1. How often do you have a drink containing alcohol?: Never 3. How often do you have six or more drinks on one occasion?: Never Total Score: 0 MAXINE-7 AMB Questionnaire MAXINE-7 Date MAXINE - 7 assessed: 06/04/25 Feeling nervous, anxious, or on edge: 0 = Not at all Not being able to stop or control worryin = Not at all Worrying too much about different things: 0 = Not at all Trouble relaxin = Not at all Being so restless that it is hard to sit still: 0 = Not at all Becoming easily annoyed or irritable: 0 = Not at all Feeling afraid as if something awful might happen: 0 = Not at all Total MAXINE-7 score (0-4 normal; 5-9 mild; 10-14 moderate; 15-21 severe): 0 Source: Developed by Drs. Stewart Cabrera, Blanca Whalen, Joel Schmidt and colleagues, with an educational florecita from [employer]. Physical exam (Primary Care) Vital Signs: Last Vital Signs Temp 97.8 F 06/04/25 10:17 Pulse 72 06/04/25 10:17 Resp 16 06/04/25 10:17 BP 156/81 H 06/04/25 10:17 Pulse Ox 96 06/04/25 10:17 Oxygen Delivery Method Room Air 06/04/25 10:17 Care Plan Goal for BP management: Elevated BP noted. White coat effect BMI result Body Mass Index 43.2 BMI Assessment/Plan discussion: High (one pound per week weight loss) BMI High, discussed plan: lifestyle, weight reduction and dietary Tobacco/Smoking Status: Tobacco use Status Tobacco use date assessed 06/04/25 06/04/25 10:16 Patient Tobacco Use Status Never used Tobacco 06/04/25 10:24 PHQ-9: PHQ-9 Score PHQ-9: Total score 0 06/04/25 10:16 Depression Screening Interpretation: Negative Thrive Assessment: Date of Thrive Assessment Date Thrive assessed 06/04/25 06/04/25 10:16 Coding Level of Care Code New Pt Level 4 (73754) Complex EM visit Add On G2211 Diagnoses Hypertension I10 Assessment & Plan Assessment & Plan (1) Hypertension: Code(s): I10 - Essential (primary) hypertension Category: Medical Plan: BP is stable, continue current medications Plan History of Present Illness - The patient is a 59-year-old male presenting with management of hypertension and preventative care. - Essential Hypertension: Reports elevated blood pressure readings, with a recent clinic measurement of 156/81 mmHg, attributed to white coat syndrome, causing an increase of about 15 points during doctor visits. - Currently on metoprolol, taking two 50 mg tablets daily, and monitors blood pressure at home, noting his machine reads 10 points higher on the diastolic value. - Benign Prostatic Hyperplasia: Occasionally uses tadalafil and tamsulosin for prostate health and kidney stones, but does not take these medications daily. - Kidney Stones: Has a history of kidney stones and sees Dr. Rossi for management, using tamsulosin as needed during flare-ups. - Preventative Care: Up to date with colon cancer screening, having had a colonoscopy in 2019, and reports no family history of colon cancer. Social History - Employment: Works at [employer]. - Exercise: Reports decreased exercise due to work commitments, previously lost weight through low carbohydrate diet. - Nutrition: Follows a low carbohydrate diet, consuming about 50 grams of carbohydrates daily, and has lost 10 pounds in the last month. Review of Systems - Cardiovascular: Reports elevated blood pressure readings, denies chest pain or palpitations. - Genitourinary: Reports occasional use of tadalafil and tamsulosin, denies urinary incontinence. - Gastrointestinal: Denies irregular bowel habits. - Neurological: Denies headaches or dizziness. - Ophthalmologic: Reports good vision with glasses, denies halos or cataracts. - Sleep: Reports good sleep, denies use of sleep medications. Physical Exam General: Cooperative and healthy appearing Nutritional Appearance: Well nourished Orientation/consciousness: Patient oriented x3 Limitations: No limitations Head: Normal to inspection General: Appearance normal, both eyes and all related structures Neck: Normal visual inspection Chest: Normal palpation of entire chest wall Respiratory: N ormal respiratory effort Neurology: Patient oriented x3, Vision is good with glasses, Hearing is good, No cataracts, Bowel habits irregular, No pains anywhere Results Plan 1. Essential Hypertension - Continue current metoprolol dosage and monitor blood pressure at home. - Repeat fasting blood work to assess cholesterol levels. 2. Benign Prostatic Hyperplasia - Continue tadalafil and tamsulosin as needed for prostate health and kidney stone management. 3. Kidney Stones - Continue management with Dr. Rossi and use tamsulosin during flare-ups. 4. Preventative Care - Up to date with colonoscopy, next screening in 10 years if no polyps are found. Discussion Notes During the visit, we discussed the management of hypertension, including the continuation of metoprolol and home monitoring of blood pressure. We also reviewed the patient's preventative care, ensuring he is up to date with colon cancer screening. The patient was advised to repeat fasting blood work to assess cholesterol levels. We discussed the use of tadalafil and tamsulosin for benign prostatic hyperplasia and kidney stone management, with a plan to continue these medications as needed. Follow-up care with Dr. Rossi for kidney stones was confirmed. Patient Instructions - Continue taking metoprolol as prescribed and monitor blood pressure at home. - Schedule and complete fasting blood work as discussed. - Use tadalafil and tamsulosin as needed for prostate health and kidney stones. - Follow up with Dr. Rossi for kidney stone management. - Maintain a low carbohydrate diet and continue weight management efforts. Orders: Orders Complete Blood Count no Diff Today I10 - Essential (primary) hypertension Lipid Panel Today I10 - Essential (primary) hypertension Thyroid Stimulating Hormone Today I10 - Essential (primary) hypertension Basic Metabolic Panel Today I10 - Essential (primary) hypertension Liver Panel Today I10 - Essential (primary) hypertension UA and rflx microscopic Today I10 - Essential (primary) hypertension
[2025-06-04 10:17] VITALS: BP 156/81; PULSE 72; RESP 16; TEMP 36.6; O2SAT 96; BMI 43.2
--- OUTSIDE RECORDS SUMMARY | 2025-06-04 10:33 | XMS_ITS | Patient Health Record ---
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 Primary Care Provider Unavailable Stewart Smith Unavailable [phone] Reason For Referral No Information Medications Medication SIG (Take, Route, Frequency, Duration) Notes Start Date End Date Status Flomax 0.4 MG 1 capsule Orally Onc e a day Active Metoprolol Succinate 50 MG 1 capsule Ora lly twice a day Active Immunizations Vaccine Route Administration Date Status Comme nts Influenza Unknown 10/11/2018 Refused Social History Tobacco Use: Social History Observation Description Date Details (start date - stop date) Never Smoker NA - NA Tobacco Use/Smoking Question Answer Notes Patient is a nonsmoker Alcohol Screen Question Answer Notes Did you have a drink containing alcohol in the p ast year? No Points 0 Interpretation Negative Section Notes: Nonsmoker; no sig alcohol Problems Problem Type SNOMED Code ICD Code Onset Dates Problem Status W/U Status Risk Notes Problem 420121962 Encounter for screening for malignant neoplasm of colon (Z12.11) Active confirmed Problem 995654136460896 Pre-procedural examination (Z01.818) Active confirmed Problem 90028933 Hypertension, unspecified type (I10) Active confirmed Plan Of Treatment Future Test Test Name Order Date COLONOSCOPY 10/11/2018 Insurance Providers Payer Name Payer Address Payer Phone Subscriber Number Group Number Insured Name Patient Relationship to Insured Coverage Start Date Coverage End Date [employer] [address] [place] [address] [id number] ANA AQUINO Self - patient is the insured Medical (General) History Medical History History ICD Code Hypertension Denies [place],DM,CVA,Lung disease,renal dise ase Kidney stones--s/p ESWL--on Flomax Surgical History Surgery Date(Month/Year) Tonsillectomy
--- OUTSIDE RECORDS SUMMARY | 2025-06-04 10:33 | XMS_ITS | Encounter Summary ---
Author Organization [facility] Address [address] [place] [phone] Phone Care Team Providers Care Mexican Food Machine Tender Name Role Phone Unknown, Unknown Primary Care Provider Kandis dunn Encounter Details Date Type Department Care Team (Late st Contact Info) Description 04/22/2018 Procedure Pass [facility], Ct Scan - [address] [address] Social History Tobacco Use Types Packs/Day Years Used Date Smoking Tobacco: Never Smokeless Tobacco: Never Alcohol Use Standard Drinks/Week Comments No 0 (1 standard drink = 0.6 oz pur e alcohol) Sex and Gender Information Value Date Recorded Sex Assigned at Male 04/22/2018 9:21 PM EDT Legal Sex Male 9:15 PM EDT Gender Identity Male 04/22/2018 9:21 PM EDT Sexual Orientation Straight 04/22/2018 9: 21 PM EDT documented as of this encounter Plan of Treatment Not on file documented as of this encounter Visit Diagnoses Not on filedocumented in this encounter Additional Health Concerns Infection Onset Date Last Indicated Resolved Time COVID-19 05/11/2025 05/11/2025 06/01/2025 1:21 AM EDT documented as of this encounter Care Teams Mexican Food Machine Tender Relationship Specialty Start Date End Date Unknown, Unknown, PCP - General 04/22/18 documented as of this encounter Additional Source Comments The information contained in this document represents components of the legal health record. It is not the complete legal health record.[facility]
[2025-06-04 10:42] VITALS: BP 126/80
== END 2025-06-04 10:44 | disposition home or self-care (01) ==
LOC: HO.HMCSH 10:00
PROVIDERS: PCP Internal Medicine; Visit Provider Internal Medicine
DX: I10 Essential (primary) hypertension (principal)